=== PATIENT | male | born 1960 | race Caucasian/White ===

== ENCOUNTER 2016-08-29 12:58 | Emergency (ER) | payer MEDICAID ==
[2016-08-29 13:04] VITALS: BP 140/84; PULSE 106; RESP 16; TEMP 97.3; O2SAT 97
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
== END 2016-08-29 13:35 | disposition home or self-care (01) ==
DX: T24.231A Burn of second degree of right lower leg, initial encounter (principal); F17.200 Nicotine dependence, unspecified, uncomplicated; X19.XXXA Contact with other heat and hot substances, initial encounter

== ENCOUNTER 2018-04-06 13:26 | Emergency (ER) | payer MEDICAID ==
[2018-04-06] MEDS ORDERED: OLANZapine DISINTEGR 10 MG TAB PO ONE (14:25)
[2018-04-06] MEDS ORDERED: OLANZapine 10 MG/2 ML VIAL IV ONE (14:26)
--- NOTE | 2018-04-06 15:02 | EDPHY ---
H & P Stated Complaint: M1 "grave disability" Source: Patient Exam Limitations: No limitations - Medical/Surgical History Hx Asthma: No Hx Chronic Respiratory Disease: No Hx Diabetes: No Hx Cardiac Disease: No Hx Renal Disease: No Hx Cirrhosis: No Hx Alcoholism: Yes Hx HIV/AIDS: No Hx Splenectomy or Spleen Trauma: No Other PMH: Bipolar ETOH abuse - Social History Smoking Status: Current every day smoker Time Seen by Provider: 04/06/18 14:36 HPI/ROS: CHIEF COMPLAINT: Gravely disabled HISTORY OF PRESENT ILLNESS: The patient presents to the ED on a M1 psychiatric hold with grave disability. The patient has a history of alcoholism and bipolar mood disorder. The patient reports he takes Zyprexa but has been manic and delusional. The patient denies any medical complaints such as fever, cough , congestion, acute headache, numbness, weakness or recent trauma. The patient denies additional medical history. The patient takes no other medications. He does report heavy alcohol use but denies recreational drug use. REVIEW OF SYSTEMS: A comprehensive 10 point review of systems is otherwise negative aside from elements mentioned in the history of present illness. (Harmeet Barajas) - Physical Exam Exam: General Appearance: Alert, no distress Eyes: Pupils equal and round no pallor or injection ENT, Mouth: Mucous membranes moist Respiratory: There are no retractions, lungs are clear to auscultation Cardiovascular: Regular rate and rhythm Gastrointestinal: Abdomen is soft and nontender, no masses, bowel sounds normal Neurological: A&O, normal motor function, normal sensory exam, normal cranial nerves Skin: Warm and dry, no rashes Musculoskeletal: Neck is supple nontender Extremities: symmetrical, full range of motion Psychiatric: Hyperactive, delusional, tangential, endorses symptoms of maia, denies suicidal ideation (Harmeet Barajas) Constitutional: Initial Vital Signs Temperature (C) 36.4 C 04/06/18 14:12 Heart Rate 81 04/06/18 14:12 Respiratory Rate 16 04/06/18 14:12 Blood Pressure 148/85 H 04/06/18 14:12 O2 Sat (%) 97 04/06/18 14:12 O2 Delivery Mode Room Air Allergies/Adverse Reactions: haloperidol [From Haldol] Allergy (Verified 04/06/18 13:58) Home Medications: Medication Instructions Recorded Benztropine Mesylate 04/06/18 Divalproex 04/06/18 Naltrexone 04/06/18 OLANZapine 04/06/18 QUEtiapine FUMARATE 04/06/18 traZODone 04/06/18 Medical Decision Making ED Course/Re-evaluation: The patient is an alcoholic bipolar who presents to the ED with destabilization of his chronic psychiatric illness. The patient has been placed on an M1 psychiatric hold by [facility]. Patient was medically cleared for psychiatric evaluation. He has been cooperative throughout his stay in the emergency department. 9:15 p.m.: Psychiatric evaluation and disposition still pending. The patient will be turned over to Dr. Vidal at 10pm pending disposition. ( Harmeet Barajas) 12:00 a.m.- The patient was evaluated by the mental health team and has been placed at [facility] for further inpatient treatment and evaluation. The accepting doctor is Dr. Kumar. I have completed the EMTALA form. (Margaux Vidal) Differential Diagnosis: Differential diagnosis considered includes alcohol intoxication, bipolar disorder, psychosis (Harmeet Barajas) - Data Points Laboratory Results: Laboratory Results 04/06/18 14:06 04/06/18 14:06 04/06/18 04/06/18 04/06/18 16:00 14:06 14:06 WBC 10.02 10^3/uL H 10^3/uL (3.80-9.50) RBC 3.65 10^6/uL L 10^6/uL (4.40-6.38) Hgb 12.1 g/dL L g/dL (13.7-17.5) Hct 32.9 % L % (40.0-51.0) MCV 90.1 fL fL (81.5-99.8) MCH 33.2 pg pg (27.9-34.1) MCHC 36.8 g/dL H g/dL (32.4-36.7) RDW 12.6 % % (11.5-15.2) Plt Count 240 10^3/uL 10^3/uL (150-400) MPV 8.2 fL L fL (8.7-11.7) Neut % (Auto) 63.2 % % (39.3-74.2) Lymph % (Auto) 24.2 % % (15.0-45.0) [place] % (Auto) 9.8 % % (4.5-13.0) Eos % (Auto) 1.5 % % (0.6-7.6) Baso % (Auto) 0.8 % % (0.3-1.7) Nucleat RBC Rel Count 0.0 % % (0.0-0.2) Absolute Neuts (auto) 6.34 10^3/uL 10^3/uL (1.70-6.50) Absolute Lymphs (auto) 2.42 10^3/uL 10^3/uL (1.00-3.00) Absolute Monos (auto) 0.98 10^3/uL H 10^3/uL (0.30-0.80) Absolute Eos (auto) 0.15 10^3/uL 10^3/uL (0.03-0.40) Absolute Basos (auto) 0.08 10^3/uL 10^3/uL (0.02-0.10) Absolute Nucleated RBC 0.00 10^3/uL 10^3/uL (0-0.01) Immature Gran % 0.5 % % (0.0-1.1) Immature Gran # 0.05 10^3/uL 10^3/uL (0.00-0.10) Sodium 127 mEq/L L mEq/L (135-145) Potassium 4.5 mEq/L mEq/L (3.3-5.0) Chloride 90 mEq/L L mEq/L (97-110) Carbon Dioxide 28 mEq/l mEq/l (22-31) Anion Gap 9 mEq/L mEq/L (8-16) BUN 8 mg/dL mg/dL (7-23) Creatinine 0.7 mg/dL mg/dL (0.7-1.3) Estimated GFR > 60 Glucose 88 mg/dL mg/dL (70-100) Calcium 9.6 mg/dL mg/dL (8.5-10.4) Salicylates < 1.0 mg/dL L mg/dL (2.0-20.0) Urine Opiates Screen NEGATIVE (NEGATIVE) Acetaminophen < 10 mcg/mL L mcg/mL (10-30) Urine Barbiturates NEGATIVE (NEGATIVE) Ur Phencyclidine Scrn NEGATIVE (NEGATIVE) Ur Amphetamine Screen NEGATIVE (NEGATIVE) U Benzodiazepines Scrn NEGATIVE (NEGATIVE) Urine Cocaine Screen NEGATIVE (NEGATIVE) U Marijuana (THC) Screen NEGATIVE (NEGATIVE) Ethyl Alcohol < 10 mg/dL mg/dL (0-10) Medications Given: Discontinued Medications Sodium Chloride (Ns) 1,000 mls @ 0 mls/hr IV EDNOW ONE; Wide Open PRN Reason: Protocol Stop: 04/06/18 18:07 Last Admin: 04/06/18 18:17 Dose: 1,000 mls Lorazepam (Ativan Injection) 1 mg IVP EDNOW ONE Stop: 04/06/18 17:07 Last Admin: 04/06/18 17:07 Dose: 1 mg Olanzapine (Zyprexa Zydis) 10 mg PO EDNOW ONE Stop: 04/06/18 14:26 Last Admin: 04/06/18 14:27 Dose: Not Given Olanzapine (Zyprexa Injection) 5 mg IV EDNOW ONE Stop: 04/06/18 14:27 Last Admin: 04/06/18 14:53 Dose: 5 mg Departure - Departure Disposition: Other Psych, Not [place] Clinical Impression: Alcoholism Bipolar mood disorder Qualifiers: Active/Remission status: currently active Condition: Fair Referrals: NONE *PRIMARY CARE P,. [Primary Care Provider] - As per Instructions
[2018-04-06 15:07] LABS: PLATELET COUNT 240 10^3/uL (150-400)
[2018-04-06] MEDS ORDERED: LORazepam 2 MG/ML INJ ONE (16:45)
[2018-04-06] MEDS ORDERED: LORazepam 2 MG/ML INJ IVP ONE (17:06)
[2018-04-06] MEDS ORDERED: NS 1,000 ML IV ONE (18:06)
[2018-04-06] MEDS ORDERED: CALCIUM CARBONATE 500 MG CHEWABLE TAB PO ONE (21:47)
[2018-04-07 00:42] VITALS: BP 149/92
== END 2018-04-07 01:30 ==
LOC: EDUNIT#
DX: F10.20 Alcohol dependence, uncomplicated (principal); E86.9 Volume depletion, unspecified; F31.9 Bipolar disorder, unspecified; F17.200 Nicotine dependence, unspecified, uncomplicated; Y90.0 Blood alcohol level of less than 20 mg/100 ml
CPT/HCPCS: 80305; 96374; G0480; J2060